=== PATIENT | male | born 1950 | race Caucasian/White ===

== ENCOUNTER → 2016-10-18 | Outpatient (CLI) | payer BC ==
--- NOTE | 2016-10-18 10:38 | REP ---
Bilateral wrist series 10/18/2016 Indication: Chronic bilateral wrist pain Findings: Right wrist: Moderate narrowing is noted at the radiocarpal joint and ulna carpal joint. There is spurring of the anterior aspect of the distal ulna, most pronounced anteriorly. There is moderate narrowing of the articulation between the triquetrum and the trapezium. Small nonspecific subchondral cystic changes are present within the scaphoid and lunate. There is no acute fracture dislocation is mild generalized soft tissue swelling about the wrist Impression: 1. 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 Mild generalized soft tissue swelling. No acute fracture or dislocation Left wrist: There is mild narrowing at the radiocarpal and ulnocarpal joints. There is spurring of the distal ulna at the distal radioulnar joint as well as on the volar aspect of the distal ulna. There is no acute fracture, subluxation, moderate osteoarthritic changes within the or dislocation. The carpal bones are intact. There is generalized soft tissue swelling about the wrist Impression: 1. Mild to moderate osteoarthritic changes within the left wrist most pronounced at the distal radioulnar joint and the distal aspect of the ulna. I Signed by Kelsie Keenan MD 10/18/2016 10:28 A
[2016-10-18 13:38] LABS: MEAN CORPUSCULAR HEMOGLOBIN 32.6 pg (27.0-33.0); MEAN CORPUSCULAR HGB CONC 33.4 g/dl (32.0-36.5); MEAN CORPUSCULAR VOLUME 97.6 fl (80.0-96.0); RED CELL DISTRIBUTION WIDTH 13.4 % (11.5-14.5); WHITE BLOOD COUNT 7.4 K/mm3 (4.0-10.0)
[2016-10-18 13:49] LABS: ALBUMIN 3.9 GM/DL (3.2-5.2); ALBUMIN/GLOBULIN RATIO 1.39 (1.00-1.93); ALKALINE PHOSPHATASE 84 U/L (45-117); ALT/SGPT 25 U/L (12-78); ANION GAP 4 MEQ/L (8-16); AST/SGOT 16 U/L (15-37); BILIRUBIN,TOTAL 0.4 MG/DL (0.2-1.0); BLOOD UREA NITROGEN 27 MG/DL (7-18); CALCIUM LEVEL 9.5 MG/DL (8.8-10.2); CARBON DIOXIDE LEVEL 32 MEQ/L (21-32); CHLORIDE LEVEL 107 MEQ/L (98-107); CREATININE FOR GFR 0.98 MG/DL (0.70-1.30); GLOMERULAR FILTRATION RATE > 60.0 (>49); GLUCOSE, FASTING 105 MG/DL (80-110); POTASSIUM SERUM 5.1 MEQ/L (3.5-5.1); SODIUM LEVEL 143 MEQ/L (136-145); TOTAL PROTEIN 6.7 GM/DL (6.4-8.2)
== END ==
LOC: M ADAMS 09:53
PROVIDERS: ATTEND Physician Assistant
DX: M25.532 Pain in left wrist (principal); M25.531 Pain in right wrist; M13.831 Other specified arthritis, right wrist; M77.8 Other enthesopathies, not elsewhere classified

== ENCOUNTER 2017-05-05 20:41 | Emergency (ER) | payer BC ==
[~2017-05-05] VITALS: Ht 175.3 cm; Wt 111.8 kg
[2017-05-05 20:42] VITALS: BP 158/80
[2017-05-05] MEDS ORDERED: ASPI81TA85 PO (20:52)
[2017-05-05] MEDS ORDERED: LIPI80TA PO (20:52)
[2017-05-05] MEDS ORDERED: LOPR1TAB6 PO (20:52)
[2017-05-05] MEDS ORDERED: ONDANSETRON 4MG/2ML VIAL (J2405) IV ONE (21:00)
[2017-05-05] MEDS: MORPHINE 4 MG/ML 1ML SYRINGE IV PRN ×2 (21:22→21:48)
[2017-05-05 21:29] LABS: BASO # 0.1 K/mm3 (0.0-0.2); BASO % 0.6 % (0.0-1.0); EOS # 0.2 K/mm3 (0.0-0.50); EOS % 2.7 % (0.0-3.0); LARGE UNSTAINED CELL # 0.1 K/mm3 (0.0-0.4); LARGE UNSTAINED CELL % 1.4 % (0.0-4.0); LYMPH # 1.8 K/mm3 (1.5-4.5); LYMPH % 17.6 % (24.0-44.0); MEAN CORPUSCULAR HEMOGLOBIN 33.5 pg (27.0-33.0); MEAN CORPUSCULAR HGB CONC 34.7 g/dl (32.0-36.5); MEAN CORPUSCULAR VOLUME 96.4 fl (80.0-96.0); MONO # 0.6 K/mm3 (0.0-0.8); MONO % 6.7 % (0.0-5.0); NEUTROPHILS # 6.5 K/mm3 (1.8-7.7); PLATELET COUNT, AUTOMATED 195 k/mm3 (150-450); WHITE BLOOD COUNT 9.2 K/mm3 (4.0-10.0)
[2017-05-05 21:53] LABS: ALBUMIN 3.6 GM/DL (3.2-5.2); ALBUMIN/GLOBULIN RATIO 1.16 (1.00-1.93); ALKALINE PHOSPHATASE 73 U/L (45-117); ALT/SGPT 27 U/L (12-78); AMYLASE 27 U/L (25-115); ANION GAP 6 MEQ/L (8-16); AST/SGOT 20 U/L (15-37); BILIRUBIN,DIRECT 0.1 MG/DL (0.0-0.2); BILIRUBIN,TOTAL 0.4 MG/DL (0.2-1.0); BLOOD UREA NITROGEN 24 MG/DL (7-18); CARBON DIOXIDE LEVEL 28 MEQ/L (21-32); CHLORIDE LEVEL 105 MEQ/L (98-107); CREATININE FOR GFR 0.85 MG/DL (0.70-1.30); GLOMERULAR FILTRATION RATE > 60.0 (>49); GLUCOSE, FASTING 118 MG/DL (80-110); POTASSIUM SERUM 4.3 MEQ/L (3.5-5.1); SODIUM LEVEL 139 MEQ/L (136-145); TOTAL PROTEIN 6.7 GM/DL (6.4-8.2)
[2017-05-05] MEDS ORDERED: HYDROmorphone HCL 1 MG/ML SYRINGE (J1170) IV ONE (22:30)
--- NOTE | 2017-05-05 22:30 | REPUSA ---
CT of the abdomen and pelvis with contrast Clinical statement: Pain. Technique: Multiple axial CT images were obtained from the base of the lungs through the floor of the pelvis utilizing 5 mm axial slices after administration of nonionic intravenous contrast. Coronal an d sagittal reconstructions were also obtained. No comparison is available. Findings: Chest: The visualized lung bases are clear. Abdomen: The liver, spleen, pancreas, kidneys, gallbladder, and adrenal glands are unremarkable. Ther e is a 1 cm simple cyst in the left lobe of the liver. There is a 1.4 cm simple cyst in the lateral l eft kidney. The aorta demonstrates moderate diffuse atherosclerosis, without evidence of aneurysm or dissection. There is no evidence of abdominal lymphadenopathy or ascites. Pelvis: The bowel is unremarkable, with no obstructive or inflammatory changes. The appendix is oneal l. The urinary bladder is within normal limits. The other pelvic structures appear grossly intact. Th ere is no evidence of pelvic lymphadenopathy or ascites. Bones: There are no suspicious osseous abnormalities seen. Impression: 1. Simple cysts in the left kidney and left lobe of the liver. 2. No obstructive or inflammatory bowel changes. 3. Moderate diffuse atherosclerosis of the abdominal aorta. No evidence of aneurysm or dissection.
[2017-05-05] MEDS ORDERED: CYCL10TA PO (22:50)
== END 2017-05-05 23:03 | disposition home or self-care (01) ==
LOC: M ED 20:41
DX: M79.1 Myalgia (principal); N28.1 Cyst of kidney, acquired; K76.89 Other specified diseases of liver; R10.32 Left lower quadrant pain; I25.10 Atherosclerotic heart disease of native coronary artery without angina pectoris; I25.2 Old myocardial infarction; I10 Essential (primary) hypertension; E66.9 Obesity, unspecified; F17.200 Nicotine dependence, unspecified, uncomplicated; Z88.5 Allergy status to narcotic agent; Z79.82 Long term (current) use of aspirin; Z79.899 Other long term (current) drug therapy; Z83.3 Family history of diabetes mellitus
CPT/HCPCS: 36415; 74177; 80048; 80076; 81001; 82150; 83690; 85025; 96374; 96375; 99283; J1170; J2405

== ENCOUNTER → 2020-03-11 | Outpatient (REF) | payer BC ==
[~2020-03-11] MED LIST: ASPI81TA85 PO; CYCL-707 PO; LIPI80TA PO; LOPR1TAB6 PO
[2020-03-11 18:49] LABS: ALBUMIN 3.6 GM/DL (3.2-5.2); BILIRUBIN,DIRECT 0.2 MG/DL (0.0-0.2); BILIRUBIN,TOTAL 0.6 MG/DL (0.2-1.0); TOTAL PROTEIN 6.9 GM/DL (6.4-8.2)
== END ==
LOC: M LABDRWAD 17:06
PROVIDERS: ATTEND Nurse Practitioner Family
DX: Z01.89 Encounter for other specified special examinations (principal)

== ENCOUNTER → 2020-03-23 | Outpatient (REF) | payer BC, MEDICARE | LOC: M LAB REF 16:39 | PROVIDERS: ATTEND Nurse Practitioner Family | DX: L08.9 Local infection of the skin and subcutaneous tissue, unspecified (principal) ==

== ENCOUNTER → 2020-08-11 | Outpatient (CLI) | payer MEDICARE ==
[~2020-08-11] MED LIST changes: -ASPI81TA85 PO; +ASPI81TA86 PO
== END ==
LOC: M LABSMTC 12:15
PROVIDERS: ATTEND Orthopaedic Surgery
DX: Z11.59 Encounter for screening for other viral diseases (principal)

== ENCOUNTER → 2020-10-15 | Outpatient (CLI) | payer MEDICARE ==
[~2020-10-15] MED LIST changes: +B-1250TA3 PO; +ECOT81TA5 PO; +EZET10TA21
== END ==
LOC: M LABSMTC 09:25
PROVIDERS: ATTEND Anesthesiology
DX: Z20.822 Contact with and (suspected) exposure to COVID-19 (principal)

== ENCOUNTER 2020-10-20 06:53 | Day surgery (SDC) | payer MEDICARE ==
[~2020-10-20] VITALS: Ht 177.8 cm; Wt 118.3 kg
[~2020-10-20 06:53] MED LIST changes: +BSS IRR 500ML/OMIDRIA 4ML IRR BAG (OR ONLY) As Ordered ONE; +CEFUROXIME 1MG/0.1ML INTRACAMERAL INJ As Ordered ONE; +DUOVISC (0.50ML VISCOAT/0.55ML PROVISC) OPHTH KIT As Ordered ONE; -EZET10TA21; +EZET10TA21 PO; +POVIDONE-IODINE 5% OPHTH PREP SOL 30ML As Ordered ONE
--- OUTSIDE RECORDS SUMMARY | 2020-10-20 06:59 | CCD | Continuity of Care Document ---
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 Cardiology - Cardiovascular Disease AUTM [phone] Problems Active Problems Provider Date Varicose veins of lower extremity with inflammation Faheem Goncalves DO Onset: 06/06/2004 Elevated blood-pressure reading without diagnosis of h ypertension Zachary Goncalves DO Onset: 06/06/2004 Tobacco user Zachary Goncalves DO Onset: 06/06/2004 Chronic ischemic heart disease Tee Mills RPA Onset: 06/16/2012 Note: Dr. Winter Coronary arteriosclerosis Tee Mills RPA Onset: 04/07 Hyperlipidemia Tee Mills RPA Onset: 04/29/2015 Genital warts Tee Mills RPA Onset: 04/29/2015 Nocturia Tee Mills RPA Onset: 10/16/2016 Abnormal involuntary movement Tee Mills RPA Onset: 12/16/2018 Social History Type Date Description Comments Sex Unknown Tobacco Use Start: Unknown Current Cigarette Smoker 1 Pack Daily Smoking for [45] years ETOH Use Drinks Beer,Wine and Liquor 1-2 drinks 1-2 times per week Tobacco Use Start: Unknown Patient is a current smoker, smo kes every day 1 ppd for 45 years Recreational Drug Use Denies Drug Use Exercise Type/Frequency Walks sporadically Allergies, Adverse Reactions, Alerts Active Allergies Reaction Severity Comments Date Codeine GI upset 03/29/2008 Medications Active Medications SIG Qnty Indications Ordering Provide r Date Condylox 0.5% Gel sig as directed for elfego genital region 3.500gm Rudy Hyatt D.O., [facility] 09/2019 Clotrimazole/Betamethasone Dipropionate 1-0.05% Cream top bid left leg lesions x 14 days 45gm Rudy Hyatt D.O., [facility] 12/16/2018 Aspirin Ec Lo-Dose 81mg Tablets DR 1 by mouth every day Unknown Metoprolol Succinate ER 25mg Tablets ER 24HR 1 po qd [facility] Cardiolo gy Lipitor 80mg Tablets 1 by mouth every day [facility] Cardiology 0 One Daily For Men 50+ Advanced Men 50+ Tablets 1 tab po qod Unknown Ezetimibe 10mg Tablets 1 by mouth every day [facility] Cardiology 0 History Medications Baclofen 10mg Tablets take 1 tablet by mouth every at bedtime 14tabs Rudy Hyatt D.O., [facility] 06/06/2020 - 06/21/2020 Prednisone 10mg Tablets 2 po tid x 3 days, then 1 po tid x 3 days, then 1 po bid x 3 days, then 1 po qd x 3 days, then 1/2 po qd 42tabs [facility] 06/21/2020 Medications Administered in Office Medication SIG Qnty Indications Ordering Provider Date Injection (SC)/(Im) Injection Tee Mills, ALDO 11/15/2017 Injection (SC)/(Im) Injection Tee Mills, RPA 08/09/2015 Immunizations CPT Code Status Date Vaccine Lot # [id number] Given 06/06/2020 Influenza Virus Vaccine, Quadrivalent, Slit Virus, Im Use 3Y & Up [id number] Given 11/15/2017 Pneumococcal Immunization [id number] Given 08/09/2015 Tdap Tetanus,Dip htheria Toxoids/Acellular Pertussis 7Yrs Or Older [id number] Vital Signs Date Vital Result Comment 09/05/2020 3:23pm BP Systolic 136 mmHg BP Diastolic 80 mmHg Body Temperature 98.1 F Heart Rate 83 /min Respiratory Rate 16 /min Height 70 inches 5'10" Weight 263.00 lb [place] Body Weight 166 lb BMI (Body Mass Index) 37.7 kg/m2 O2 % BldC Oximetry 96 % 06/06/2020 4:12pm BP Systolic 110 mmHg BP Diastolic 72 mmHg Body Temperature 97.5 F Heart Rate 65 /min Respiratory Rate 16 /min Height 70 inches 5'10" Weight 262.00 lb [place] Body Weight 166 lb BMI (Body Mass Index) 37.6 kg/m2 O2 % BldC Oximetry 96 % Results Test Acquired Date Facility Test Result H/L Range Note U/A DIP FPA 06/07/2020 [facility] Asso ciates Color Urine YELLOW Yellow Appearance CLEAR Clear Specific [place] 1.030 1.00-1.03 PH Urine 6.5 5.0-8.0 Glucose Urine NEG Negative Bilirubin Urine NEG Negative Ketones NEG Negative Blood Urine NEG Negative Protein Urine NEG Negative Urobilinogen .2 EU/dl 0.2-1.0 Nitrite NEG Negative Leukocytes NEG Negative CBC 06/06/2020 [facility] WBC 8.5 10E3/uL 4.1 - 10.9 1 RBC 4.80 10E6/uL 4.20 - 6.30 HGB 16.3 g/dL 12.0 - 18.0 HCT 46.5 % 37.0 - 51.0 MCV 96.9 fL 80.0 - 97.0 MCH 34.0 pg High 26.0 - 32.0 MCHC 35.1 g/dL 31.0 - 36.0 PLT 229 10E3/uL 140 - 440 RDW-CV 12.9 % 11.5 - 14.5 Lym% 19.2 % 10.0 - 58.5 Neut% 68.5 % 37.0 - 92.0 MXD% 12.3 % 0.1 - 24.0 Lym# 1.6 10E3/uL 0.6 - 4.1 Neut# 5.9 % 2.0 - 7.8 MXD# 1.0 10E3/uL 0.0 - 1.8 MPV 11.5 fL 9.0 - 13.0 CMP 06/06/2020 [facility] Glu 98 mg/dL 70 - 110 BUN 22 mg/dL 8 - 23 Creat 0.9 mg/dL 0.7 - 1.2 BUN/Creatinine Ratio 24.0 CALC Na 138 mmol/L 136 - 145 K 4.5 mmol/L 3.5 - 5.1 CL 101.5 mmol/L 98.0 - 107.0 Co2 25.1 mmol/L 22.0 - 29.0 CA 9.7 mg/dL 8.6 - 10.2 TP 6.7 g/dL 6.6 - 8.7 Alb 4.3 g/dL 3.5 - 5.2 A/G Ratio 1.8 CALC Globulin 2.4 CALC Alp 82.7 U/L 40 - 129 Alt (SGPT) 24 U/L 0 - 41 Ast (Sgot) 20 U/L 0 - 40 Tbili 0.31 mg/dL 0.0 - 1.2 Osmolality-Calculated 279.5 CALC Anion Gap 16 mmol/L eGFR 102 # Calc 2 eGFR Non-Afr. Stateless 88 # Calc 3 Lipid Panel 06/06/2020 [facility] Chol 139 mg/dL 0 - 200 Trig 120 mg/dL 35 - 200 HDL 41 mg/dL 35 - 55 LDL_C 74 Calc Low 75 - 129 Cho/HDL Ratio 3.4 Calc Laboratory test finding 06/06/2020 [facility] TSH 1.454 ulU/mL 0.60 - 4.8 Laboratory test finding 06/06/2020 [facility] PSA, Total 0.32 ng/mL 0.0 - 4.0 1 NORMAL RANGES Age WBC RBC HGB HCT MCV PLT Adult M 4.1-10.9 4.20-6.30 12.0-18.0 37.0-51.0 80-97 140-440 Adult F 4.1-10.9 4.04-5.48 12.0-18.0 37.0-51.0 80-97 140-440 0 -1 Yr 5.0-20.0 3.9-5.9 15-18 MV: 44 MV: 91 MV: 277 2-9 Yr. 6.0-17.0 3.8-5.4 11-13 MV: 37 MV: 78 MV: 300 10 Yrs. 5.0-13.0 3.8-5.4 12-15 MV: 39 MV: 80 MV: 250 NOTE: * FOR ADULT BLACK MALES AND FEMALES, NORMAL WBC IS 2.9-7.7 K/ML * FOR ADULT BLACK MALES AND FEMALES, NORMAL RBC,HGB, AND HCT IS 5% LESS SOURCE FOR DATA: [employer] 1800 OPERATION MANUAL( AUTOMATED BLOOD COUNTS AND DIFF.) APPENDIX B-3 CHRONIC KIDNEY DISEASE STAGING PER NKF: MALE GFR INTERPRETATION: 20-49 YRS: >60 mL/min Normal 50-59 YRS: >56 mL/min Normal 60-69 YRS: >49 mL/min Normal 70-79 YRS: >42 mL/min Normal 80 and above >35 mL/min Normal FEMALE GRF INTERPRETATION: 20-39 YRS: >60 mL/min Normal 40-49 YRS: >58 mL/min Normal 50-59 YRS: >51 mL/min Normal 60-69 YRS: >45 mL/min Normal 70-79 YRS: >39 mL/min Normal 80 and above >32 mL/min NormalCLASSIFICATION CHOLESTEROL FOR ADULTS CHILDREN/ADOLESCENTS* DESIRABLE: <200 MG/DL <170 MG/DL BORDER-LINE HIGH RISK: 200-239 MG/DL 170-199 MG/DL HIGH RISK: >240 MG/DL >200 MG/DL CLASS. FOR PRIMARY LDL CHOL PREVENTION: LDL CHOL-CHILD/ADOLESCENTS* DESIRABLE: <130 MG/DL <110 MG/DL BORDERLINE-HIGH RISK: 130- 159 MG/DL 110-129 MG/DL HIGH RISK: >160 MG/DL >130 MG/DL *CHILDREN AND ADOLESCENTS REPRESENTS INDIVIDUALA AGED 2-19 YEARS EXCLUSIVE. 2 CKD-EPI 3 CKD-EPI Procedures Date Code Description Status 06/06/2020 00894 Electrocardiogram Complete Compl eted Medical Devices Description No Information Available Encounters Type Date Location Provider Dx Diagnosis Office Visit 06/06/2020 4:00p [place] [facility] Tee Mills RP A Z00.01 Encounter for general adult medical exam w abnormal findings M54.5 Low back pain M25.552 Pain in left hip M54.16 Radiculopathy, lumbar region E78.5 Hyperlipidemia, unspecified I25.10 Athscl heart disease of [place] coronary artery w/o ang pctrs R35.1 Nocturia F17.210 Nicotine dependence, cigaret [place], uncomplicated A63.0 Anogenital (venereal) warts Z23 Encounter for immunization Z12.11 Encounter for screening for malignant neoplasm of colon Assessments Date Code Description Provider 09/05/2020 K42.9 Umbilical hernia without obstruc tion or gangrene Tee Mills, RPA 06/07/2020 M54.5 Low back pain Tee Mills, RPA 06/06/2020 Z23 Encounter for immunization Samuel Hyatt D.O., [facility] 06/06/2020 Z00.01 Encounter for genera l adult medical examination with abnormal findings Tee Mills, RPA 06/06/2020 M54.5 Low back pain Tee Mills, RPA 06/06/2020 M25.552 Pain in left hip Tee Mills, RPA 06/06/2020 M54.16 Radiculopathy, lumbar region Tee Ngo, RPA 06/06/2020 E78.5 Hyperlipidemia, unspecified Tee Ortiz, RPA 06/06/2020 I25.10 Atherosclerotic heart disease of [place] coronary artery with Tee Mills, RPA 06/06/2020 R35.1 Nocturia Tee Mills, RPA 06/06/2020 F17.210 Nicotine dependence, cigarettes, uncomplicated Tee Mills, RPA 06/06/2020 A63.0 Anogenital (venereal) warts Tee Ortiz, RPA 06/06/2020 Z23 Encounter for immunization Tee Fox, RPA 06/06/2020 Z12.11 Encounter for screening for mary gnant neoplasm of colon Tee Mills, RPA Plan of Treatment No Information Available Functional Status Description No Information Available Mental Status Description No Information Available Referrals Refer to Reason for Referral Status Appt Date Bam Mendez M.D. tender 15mm umbilical hernia--mild pain at t imes. Created [address] [place] [address], [address] [place] [address] [phone] [facility] Extensive venereal [place] [address] [facility], [place] [address] [phone]
--- OUTSIDE RECORDS SUMMARY | 2020-10-20 06:59 | CCD | Continuity of Care Document ---
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 [employer] BEER Tobacco Use Start: 10/07/66 Patient is a current smoker, smo kes every day 1 PPD Recreational Drug Use Denies Drug Use Allergies, Adverse Reactions, Alerts Active Allergies Reaction Severity Comments Date Codeine Nausea 09/14/2020 Medications Active Medications SIG Qnty Indications Ordering Provide r Date Atorvastatin Calcium 80mg Tablets 1 Tab PO qd Unknown Ezetimibe 10mg Tablets 1 Tab PO qd Unknown Metoprolol Tartrate 25mg Tablets 1 Tab PO qd Unknown Aspirin [address] take 1 tab by mouth daily Unknown Vitamin B12 1000mcg Tablets ER 1 by mouth every day Unknown Immunizations Description No Information Available Vital Signs Date Vital Result Comment 09/14/2020 11:14am BP Systolic 137 mmHg BP Diastolic 90 mmHg Height 70 inches 5'10" Weight 263.25 lb BMI (Body Mass Index) 37.8 kg/m2 [place] Body Weight 166 lb Weight 119.410 kg BSA (Body Surface Area) 2.35 m2 Results Description No Information Available Procedures Description No Information Available Medical Devices Description No Information Available Encounters Description No Information Available Assessments Description No Information Available Plan of Treatment No Information Available Functional Status Description No Information Available Mental Status Description No Information Available Referrals Refer to Reason for Referral Status Appt Date Bam Mendez JR, MD UMBILICAL HERNIA Scheduled 020 [address] [facility] [address] [place] [phone] [phone]
[2020-10-20] MEDS ORDERED: PROPARACAINE 0.5% OPHTH SOL 15ML OS ONE (07:00)
[2020-10-20] MEDS ORDERED: OFLOXACIN 0.3 % (OCUFLOX) OPTH SOL 5ML OS ONE (07:00)
[2020-10-20] MEDS ORDERED: PHENYLEPHRINE 2.5% OPHTH SOL 2ML OS ONE (07:00)
[2020-10-20] MEDS ORDERED: TROPICAMIDE 1% OPHTH SOLN 2ML OS ONE (07:00)
--- OUTSIDE RECORDS SUMMARY | 2020-10-20 07:00 | CCD | Continuity of Care Document ---
Author Author Armand DAILEY MD Organization Unknown Address [address] [place] [address] Phone [phone] Care Team Providers Care Merchandiser Seasonal Name Role Phone Tee Mills [facility]M [phone] Problems Active Problems Provider Date Essential hypertension Gilberto Dailey MD Onset: 03/01/2017 Social History Type Date Description Comments Sex Unknown ETOH Use Occasionally consumes alcohol Tobacco Use Start: Unknown Patient is a current smoker, smo kes every day smoked for 50 years, 1 pack daily Allergies, Adverse Reactions, Alerts Active Allergies Reaction Severity Comments Date Codeine 03/01/2017 Medications Active Medications SIG Qnty Indications Ordering Provide r Date Gabapentin 100mg Capsules 1-2 by mouth three times a day 90caps M51.36 Gilberto Dailey MD 07/04/2020 Lipitor 80mg Tablets 1 by mouth every day Unknown Metoprolol Succinate ER 25mg Tablets ER 24HR 1 by mouth every day Unknown 000 000 Aspirin Adult Low Strength 81mg Ch ewtabs 1 by mouth every day Unknown Baclofen 10mg Tablets Tee Mills RPA Prednisone 10mg Tablets Tee Mills RPA Ezetimibe 10mg Tablets Penny Winter MD Metoprolol Tartrate 25mg Tablets Penny Winter MD Tacrolimus 0.1% Ointment Apply To Left Lower Leg Two Times A Day as Needed For Itching Unknown Doxycycline Hyclate 100mg Tablets Unknown Clobetasol Propionate 0.05% Ointment Unknown Ciclopirox 0.77% Gel Apply To Left Lower Leg Two Times A Day For 2 Weeks Unknown Fluzone High-Dose 0.5ml [place] Unknown Immunizations Description No Information Available Vital Signs Date Vital Result Comment 06/21/2020 8:24am Body Temperature 97.0 F Height 70 inches 5'10" Weight 255.00 lb BMI (Body Mass Index) 36.6 kg/m2 02/14/2018 8:55am Body Temperature 97.4 F Height 69.75 inches 5'9.75" Weight 244.00 lb BMI (Body Mass Index) 35.3 kg/m2 Results Test Acquired Date Facility Test Result H/L Range Note Laboratory test finding 08/11/2020 [facility] [address] [place] [address] (315)- - Coronavirus 2019 Nasopharygeal This nucleic aci <SEE NOTE> 1 1 This nucleic acid amplificat ion test was developed and its performance characteristics determined by [employer]. Nucleic acid amplification tests include PCR and TMA. This test has not been FDA cleared or approved. This test has been authorized by FDA under an Emergency Use Authorization (EUA). This test is only authorized for the duration of time the declaration that circumstances exist justifying the authorization of the emergency use of in vitro diagnostic tests for detection of SARS-CoV-2 virus and/or diagnosis of COVID-19 infection under section 564(b)(1) of the Act, 21 U.S.C. 360bbb-3 (b) (1), unless the authorization is terminated or revoked sooner. When diagnostic testing is negative, the possibility of a false negative result should be considered in the context of a patient's recent exposures and the presence of clinical signs and symptoms consistent with COVID-19. An individual without symptoms of COVID-19 and who is not shedding SARS-CoV-2 virus would expect to have a negative (not detected) result in this assay. Performed at: [facility] [address] [id number] [facility]: Danica Caruso MD, Phone: [phone] Not Detected Procedures Date Code Description Status 06/21/2020 27621 X-Ray Spine Lumbosacral Bending Only 2 Or 3 Views Completed Medical Devices Description No Information Available Encounters Type Date Location Provider Dx Diagnosis Office Visit 07/04/2020 12:30p [place] Gilberto Dailey MD M48.061 Spinal stenosis, lumbar region without neurogenic ellen M51.36 Other intervertebral disc de generation, lumbar region M47.896 Other spondylosis, lumbar re gion M54.16 Radiculopathy, lumbar region F17.210 Nicotine dependence, cigaret [place], uncomplicated M41.9 Scoliosis, unspecified Office Visit 06/21/2020 8:00a [place] Gilberto Dailey MD M51.36 Other intervertebral disc degeneration, lumbar region M47.896 Other spondylosis, lumbar re gion M54.16 Radiculopathy, lumbar region F17.210 Nicotine dependence, cigaret [place], uncomplicated Assessments Date Code Description Provider 08/29/2020 M48.061 Spinal stenosis, lum bar region without neurogenic claudication Gilberto Dailey MD 08/29/2020 M51.36 Other intervertebral disc degene ration, lumbar region Gilberto Dailey MD 08/29/2020 M47.896 Other spondylosis, lumbar region Gilberto Dailey MD 08/29/2020 M54.16 Radiculopathy, lumbar region Bru kitty Dailey MD 08/29/2020 F17.210 Nicotine dependence, cigarettes, uncomplicated Gilberto Dailey MD 08/29/2020 M41.9 Scoliosis, unspecified Gilberto Dailey MD 07/04/2020 M48.061 Spinal stenosis, lum bar region without neurogenic claudication Gilberto Dailey MD 07/04/2020 M51.36 Other intervertebral disc degene ration, lumbar region Gilberto Dailey MD 07/04/2020 M47.896 Other spondylosis, lumbar region Gilberto Dailey MD 07/04/2020 M54.16 Radiculopathy, lumbar region Bru kitty Dailey MD 07/04/2020 F17.210 Nicotine dependence, cigarettes, uncomplicated Gilberto Dailey MD 07/04/2020 M41.9 Scoliosis, unspecified Gilberto Dailey MD 06/21/2020 M51.36 Other intervertebral disc degene ration, lumbar region Gilberto Dailey MD 06/21/2020 M47.896 Other spondylosis, lumbar region Gilberto Dailey MD 06/21/2020 M54.16 Radiculopathy, lumbar region Bru ce Deyvi Dailey MD 06/21/2020 F17.210 Nicotine dependence, cigarettes, uncomplicated Gilberto Dailey MD Plan of Treatment 08/29/2020 - Gilberto Dailey MD* M48.061 Spinal stenosis, lumbar region without neurogenic claudication* Follow up:* will follow up when wanting intrepid nunu injections again thank you per [facility] * M51.36 Other intervertebral disc degeneration, lumbar region * M47.896 Other spondylosis, lumbar region * M54.16 Radiculopathy, lumbar region * F17.210 Nicotine dependence, cigarettes, uncomplicated * M41.9 Scoliosis, unspecified Functional Status Description No Information Available Mental Status Description No Information Available Referrals Refer to Dr Reason for Referral Status Appt Date Gilberto Dailey MD LIANNA INJ([id number]) PER DINO [facility] AT [facility] APPROVAL FOR 1 INJ TO SURGERY NT Created [address] [facility], [address] [place] [address] [phone]
--- OUTSIDE RECORDS SUMMARY | 2020-10-20 07:00 | CCD ---
Author Author [facility] Organization [facility] Address Unknown Phone Unavailable Care Team Providers Care Security System Installer Name Role Phone Isabelle Mills PA Unavailable Unavailable Isabelle Mills PA Unavailable Unavailable Isabelle Mills PA Unavailable Unavailable Isabelle Mills PA Unavailable Unavailable Isabelle Mills PA Unavailable Unavailable Isabelle Mills PA Unavailable Unavailable Isabelle Mills PA Unavailable Unavailable Isabelle Mills PA Unavailable Unavailable Isabelle Mills PA Unavailable Unavailable Isabelle Mills PA Unavailable Unavailable Isabelle Mills PA Unavailable Unavailable Isabelle Mills PA Unavailable Unavailable Isabelle Mills PA Unavailable Unavailable Isabelle Mills PA Unavailable Unavailable Isabelle Mills PA Unavailable Unavailable Isabelle Mills PA Unavailable Unavailable Isabelle Mills PA Unavailable Unavailable Isabelle Mills PA Unavailable Unavailable Isabelle Mills PA Unavailable Unavailable Isabelle Mills PA Unavailable Unavailable Isabelle Mills PA Unavailable Unavailable Isabelle Mills PA Unavailable Unavailable Isabelle Mills PA Unavailable Unavailable Isabelle Mills PA Unavailable Unavailable Isabelle Mills PA Unavailable Unavailable Isabelle Mills PA Unavailable Unavailable Isabelle Mills Tee PA Unavailable Unavailable Isabelle Mills PA Unavailable Unavailable Isabelle Mills PA Unavailable Unavailable Isabelle Mills Tee PA Unavailable Unavailable Isabelle Mills PA Unavailable Unavailable Isabelle Mills PA Unavailable Unavailable Isabelle Mills PA Unavailable Unavailable Isabelle Mills PA Unavailable Unavailable Isabelle Mills PA Unavailable Unavailable Isabelle Mills PA Unavailable Unavailable Isabelle Mills PA Unavailable Unavailable Lina, D Tee PA Unavailable Unavailable Lina, D Tee PA Unavailable Unavailable Lina, D Tee PA Unavailable Unavailable Lina, D Tee PA Unavailable Unavailable Lina, D Tee PA Unavailable Unavailable Lina, D Tee PA Unavailable Unavailable Lina, D Tee PA Unavailable Unavailable Lina, D Tee PA Unavailable Unavailable Lina, D Tee PA Unavailable Unavailable Lina, D Tee PA Unavailable Unavailable Lina, D Tee PA Unavailable Unavailable Lina, D Tee PA Unavailable Unavailable Lina, D Tee PA Unavailable Unavailable Lina, D Tee PA Unavailable Unavailable Lina, D Tee PA Unavailable Unavailable Lina, D Tee PA Unavailable Unavailable Lina, D Tee PA Unavailable Unavailable Lina, D Tee PA Unavailable Unavailable Lina, D Tee PA Unavailable Unavailable Lina, D Tee PA Unavailable Unavailable Lina, D Tee PA Unavailable Unavailable Lina, D Tee PA Unavailable Unavailable Lina, D Tee PA Unavailable Unavailable Lina, D Tee PA Unavailable Unavailable Lina, D Tee PA Unavailable Unavailable Lina, D Tee PA Unavailable Unavailable Marbella, N Lei ESTIMATION MANAGER Unavailable Unavailable Marbella, N Lei ESTIMATION MANAGER Unavailable Unavailable Marbella, N Lei ESTIMATION MANAGER Unavailable Unavailable Marbella, N Lei ESTIMATION MANAGER Unavailable Unavailable [place], N Lei ESTIMATION MANAGER Unavailable Unavailable Marbella, N Lei ESTIMATION MANAGER Unavailable Unavailable Marbella, N Lei ESTIMATION MANAGER Unavailable Unavailable [place], N Lei ESTIMATION MANAGER Unavailable Unavailable Marbella, N Lei ESTIMATION MANAGER Unavailable Unavailable Marbella, N Lei ESTIMATION MANAGER Unavailable Unavailable [place], N Lei ESTIMATION MANAGER Unavailable Unavailable [place], N Lei ESTIMATION MANAGER Unavailable Unavailable [place], N Lei ESTIMATION MANAGER Unavailable Unavailable Marbella, N Lei ESTIMATION MANAGER Unavailable Unavailable Marbella, N Lei ESTIMATION MANAGER Unavailable Unavailable [place], N Lei ESTIMATION MANAGER Unavailable Unavailable Marbella, N Lei ESTIMATION MANAGER Unavailable Unavailable [place], N Lei ESTIMATION MANAGER Unavailable Unavailable Marbella, N Lei ESTIMATION MANAGER Unavailable Unavailable Marbella, N Lei ESTIMATION MANAGER Unavailable Unavailable [place], N Lei ESTIMATION MANAGER Unavailable Unavailable [place], N Lei ESTIMATION MANAGER Unavailable Unavailable [place], N Lei ESTIMATION MANAGER Unavailable Unavailable Marbella, N Lei ESTIMATION MANAGER Unavailable Unavailable [place], N Lei ESTIMATION MANAGER Unavailable Unavailable [place], N Lei ESTIMATION MANAGER Unavailable Unavailable Marbella, N Lei ESTIMATION MANAGER Unavailable Unavailable [place], N Lei ESTIMATION MANAGER Unavailable Unavailable Marbella, N Lei ESTIMATION MANAGER Unavailable Unavailable Marbella, N Lei ESTIMATION MANAGER Unavailable Unavailable Williamson, L Gilberto MD Unavailable Unavailable Williamson, L Gilberto MD Unavailable Unavailable Williamson, L Gilberto MD Unavailable Unavailable Williamson, L Gilberto MD Unavailable Unavailable Williamson, L Gilberto MD Unavailable Unavailable Williamson, L Gilberto MD Unavailable Unavailable Williamson, L Gilberto MD Unavailable Unavailable Williamson, L Gilberto MD Unavailable Unavailable Williamson, L Gilberto MD Unavailable Unavailable Williamson, L Gilberto MD Unavailable Unavailable Williamson, L Gilberto MD Unavailable Unavailable Williamson, L Gilberto MD Unavailable Unavailable Williamson, L Gilberto MD Unavailable Unavailable Williamson, L Gilberto MD Unavailable Unavailable Williamson, L Gilberto MD Unavailable Unavailable Williamson, L Gilberto MD Unavailable Unavailable Williamson, L Gilberto MD Unavailable Unavailable Williamson, L Gilberto MD Unavailable Unavailable Williamson, L Gilberto MD Unavailable Unavailable Williamson, L Gilberto MD Unavailable Unavailable Williamson, L Gilberto MD Unavailable Unavailable Williamson, L Gilberto MD Unavailable Unavailable Williamson, L Gilberto MD Unavailable Unavailable Williamson, L Gilberto MD Unavailable Unavailable Williamson, L Gilberto MD Unavailable Unavailable Williamson, L Gilberto MD Unavailable Unavailable Williamson, L Gilberto MD Unavailable Unavailable Williamson, L Gilberto MD Unavailable Unavailable Williamson, L Gilberto MD Unavailable Unavailable Williamson, L Gilberto MD Unavailable Unavailable Williamson, L Gilberto MD Unavailable Unavailable Williamson, L Gilberto MD Unavailable Unavailable Williamson, L Gilberto MD Unavailable Unavailable Williamson, L Gilberto MD Unavailable Unavailable Williamson, L Gilberto MD Unavailable Unavailable Williamson, L Gilberto MD Unavailable Unavailable Williamson, L Gilberto MD Unavailable Unavailable Williamson, L Gilberto MD Unavailable Unavailable Williamson, L Gilberto MD Unavailable Unavailable Williamson, L Gilberto MD Unavailable Unavailable Williamson, L Gilberto MD Unavailable Unavailable Williamson, L Gilberto MD Unavailable Unavailable Williamson, L Gilberto MD Unavailable Unavailable Williamson, L Gilberto MD Unavailable Unavailable Williamson, L Gilberto MD Unavailable Unavailable Williamson, L Gilberto MD Unavailable Unavailable Williamson, L Gilberto MD Unavailable Unavailable Re-disclosure Warning The records that you are about to access may contain information from federally-assisted alcohol or drug abuse programs. If such information is present, then the following federally mandated warning applies: This information has been disclosed to you from records protected by federal confidentiality rules (42 CFR part 2). The federal rules prohibit you from making any further disclosure of this information unless further disclosure is expressly permitted by the written consent of the person to whom it pertains or as otherwise permitted by 42 CFR part 2. A general authorization for the release of medical or other information is NOT sufficient for this purpose. The Federal rules restrict any use of the information to criminally investigate or prosecute any alcohol or drug abuse patient.The records that you are about to access may contain highly sensitive health information, the redisclosure of which is protected by Article 27-F of the [facility] Public Health law. If you continue you may have access to information: Regarding HIV / AIDS; Provided by facilities licensed or operated by the [facility] Office of Mental Health; or Provided by the [facility] Office for People With Developmental Disabilities. If such information is present, then the following [facility] mandated warning applies: This information has been disclosed to you from confidential records which are protected by state law. State law prohibits you from making any further disclosure of this information without the specific written consent of the person to whom it pertains, or as otherwise permitted by law. Any unauthorized further disclosure in violation of state law may result in a fine or usp sentence or both. A general authorization for the release of medical or other information is NOT sufficient authorization for further disc losure. Family History Family Member Name Family Member Gender Family Member Status Date o f Status Description Data Source(s) Unknown Male Problem [facility] ([facility]) Unknown Unknown Problem [facility] ([facility] Unknown Unknown Problem [facility] ([facility]) father Encounters Encounter Providers Location Date Indications Data Source(s ) Outpatient Attender: Lei BUENROSTRO.[email or web address].MARI 021 12:00:00 AM EST - 10/17/2020 01:33:[address] [facility] Outpatient Attender: Lei [email or web address].[email or web address] 020 12:00:00 AM EST - 09/13/2020 03:32:[address] [facility] Outpatient Attender: Gilberto Williamson MD Physical Therapy 07/04/2020 1 2:30:00 PM EDT [facility] ([facility]) Outpatient Attender: Gilberto Williamson MD Physical Therapy 06/21/2020 0 8:00:00 AM EDT [facility] ([facility]) Outpatient Attender: [facility] 04:00:00 PM EDT [facility] ([facility] Immunizations Vaccine Date Status Description Data Source(s) New in 2013. IIV4 06/06/2020 04:42:00 PM EDT completed [facility] ([facility] INFLUENZA VIRUS VACCINE TRIVAL SPLIT [id number](67 YR U P)/PF 09/16/2019 12:00:00 AM EST completed [facility] Medications Medication Brand Name Start Date Product Form Dose Route Admi nistrative Instructions Pharmacy Instructions Status Indications Reaction Description Data Source(s) 1 % 10/14/2020 12:00:00 AM EST drops,suspension 2 ON DAY OF SURGERY REMOVE PATCH AND INSTILL ONE DROP TWO TIMES A DAY INTO LEFT EYE ON DAY OF SURGERY REMOVE PATCH AND INSTILL ONE DROP TWO TIMES A DAY INTO LEFT EYE SOLD: 10/15/2020 [facility] 0.075 % 10/14/2020 12:00:00 AM EST drops 5 INSTILL ONE DROP TWO TIMES A DAY INTO LEFT EYE, START THREE DAYS PRIOR TO SURGERY INSTILL ONE DROP TWO TIMES A DAY INTO LEFT EYE, START THREE DAYS PRIOR TO SURGERY SOLD: 10/15/2020 [facility] moxifloxacin 5 MG/ML Ophthalmic Solution 0.5 % MOXIFLOXACIN HCL 10/14/2020 12:00:00 AM EST drops 3 INSTILL ONE DROP FOUR TIMES A DAY INTO LEFT EYE STARTING THREE DAYS PRIOR TO SURGERY INSTILL ONE DROP FOUR TIMES A DAY INTO L EFT EYE STARTING THREE DAYS PRIOR TO SURGERY SOLD: 10/15/2020 [facility] ezetimibe 10 MG Oral Tablet ezetimibe (ZETIA) 10 MG ta blet ezetimibe (ZETIA) 10 MG tablet 08/31/2020 12:00:00 AM EST 10 mg Oral active Take 1 tablet (10 mg total) by mouth daily [facility] atorvastatin 80 MG Oral Tablet atorvastatin (LIPITOR) 80 MG tablet atorvastatin (LIPITOR) 80 MG tablet 08/31/2020 12:00:00 AM EST 80 mg Oral active Take 1 tablet (80 mg total) by mouth daily [facility] 100 mg 07/05/2020 12:00:00 AM EDT capsule 90 TAKE 1 TO 2 CAPSULES BY MOUTH THREE TIMES A DAY TAKE 1 TO 2 CAPSULES BY MOUTH THREE TIMES A DAY SOLD: 07/06/2020 [facility] gabapentin 100 MG Oral Capsule Gabapentin 07/04/2020 12:00:00 AM EDT ORAL active [facility] ([facility]) 10 mg 06/07/2020 12:00:00 AM EDT tablet 42 TAKE 2 TABLETS BY MOUTH THREE TIMES A DAY FOR 3 DAYS THEN 1 TABLET THREE TIMES A DAY FOR 3 DAYS THEN 1 TABLET TWO TIMES A DAY FOR 3 DAYS THEN 1TAB ONCE DAILY FOR 3 DAYS THEN 1/2 TABLET ONCE DAILY TAKE 2 TABLETS BY MOUTH THREE TIMES A DA Y FOR 3 DAYS THEN 1 TABLET THREE TIMES A DAY FOR 3 DAYS THEN 1 TABLET TWO TIMES A DAY FOR 3 DAYS THEN 1TAB ONCE DAILY FOR 3 DAYS THEN 1/2 TABLET ONCE DAILY SOLD: 06/07/2020 [facility] 10 mg 06/07/2020 12:00:00 AM EDT tablet 14 TAKE ONE TABLET BY MOUTH AT BEDTIME TAKE ONE TABLET BY MOUTH AT BEDTIME SOLD: 06/07/2020 [facility] Baclofen 10 MG Oral Tablet Baclofen 06/06/2020 12:00:00 AM EDT ORAL completed [facility] ([facility] Prednisone 10 MG Oral Tablet Prednisone 06/06/2020 12:00:00 AM EDT ORAL completed [facility] ([facility] Metoprolol Tartrate 25 MG Oral Tablet me toprolol tartrate (LOPRESSOR) 25 MG tablet metoprolol tartrate (LOPRESSOR) 25 MG tablet 04/20/2020 12:0 0:00 AM EDT aborted TAKE 1 TABLET RICH MARY [facility] 0.1 % 04/14/2020 12:00:00 AM EDT ointment 60 APPLY TO LEFT LOWER LEG TWO TIMES A DAY NEEDED FOR ITCHING APPLY TO LEFT LOWER LEG TWO TIMES A DAY NEEDED FOR ITCHING SOLD: 04/15/2020 [facility] 100 mg 03/23/2020 12:00:00 AM EDT tablet 28 TAKE ONE TABLET BY MOUTH TWICE A DAY FOR 14 DAYS TAKE ONE TABLET BY MOUTH TWICE A DAY FOR 14 DAYS SOLD: 03/23/2020 [facility] Clobetasol Propionate 0.0005 MG/MG Topical Ointment 0. 05 % CLOBETASOL PROPIONATE 03/21/2020 12:00:00 AM EDT ointment 30 A PPLY TO LEFT LEG TWO TIMES A DAY FOR 2 WEEKS APPLY TO LEFT LEG TWO TIMES A DAY FOR 2 WEEKS SOLD: 03/21/2020 [facility] 0.77 % 03/11/2020 12:00:00 AM EDT gel 45 APPLY TO LEFT LOWER LEG TWO TIMES A DAY FOR 2 WEEKS APPLY TO LEFT LOWER LEG TWO TIMES A DAY FOR 2 WEEKS SO LD: 03/12/2020 [facility] Insurance Providers Payer name Policy type / Coverage type Policy ID Covered green party ID Covered green party's relationship to garcia Policy Garcia Plan Information MEDICARE BLUE PPO 306 [id number] SP [id number] [employer]BS MEDICARE Medicare [id number] [employer]BS MEDICARE [id number] Cathy [id number] MEDICARE BLUE PPO 306 [id number] SP [id number] [place] [employer] B [id number] S VYM [id number] [employer] BCBS B [id number] S VYE [id number] [place] P[place] 302/307 [id number] SP [id number] [place] P[place] 302/307 [id number] SP [id number] [place] Other 0 Self 0 BS [place] Commercial [id number] Self [id number] Blue Cross Blue Shield P [id number] SELF [id number] BCBS/[place] Commercial [id number] Self VY [id number] [place] PPO 302/307 [id number] SP [id number] BS [place] Commercial [id number] Self [id number] [place] BCBS B [id number] S [id number] BCBS/[place] Self SELF PAY P S Problems, Conditions, and Diagnoses Code Display Name Description Problem Type Effective Dates Data Source(s) R03.0 Elevated BP Elevated BP [id number] 09/13/2020 12:00:00 AM [facility] R03.0 Elevated blood-pressure reading, without diagnosis of hypertension Elevated blood-pressure reading, without Diagnosis 10/17/2020 01:12:44 PM [facility] F17.200 Nicotine dependence, unspecified, uncomp licated Nicotine dependence, unspecified, uncomp Diagnosis 10/17/2020 01:12:44 PM EST [facility] I25.10 Atherosclerotic heart diseas e of [place] coronary artery without angina pectoris Atherosclerotic heart disease of [place] Diagnosis 10/17/2020 01:12:44 PM EST [facility] E78.00 Pure hypercholesterolemia, unspecified P ure hypercholesterolemia, unspecified Diagnosis 10/17/2020 01:12:44 PM EST [facility] R06.83 Snoring Snoring Diagnosis 10/17/2020 01:12:44 PM ES T [facility] Surgeries/Procedures Procedure Description Date Indications Data Source(s) ECG ROUTINE ECG W/LEAST 12 LDS W/I&R POCT AMB EKG Routine 09/13/2020 3:15 PM EST Atherosclerosis of [place] coronary artery of [place] heart without angina pectoris 09/13/2020 08:15:00 PM EST Atheroscleros is of [place] coronary artery of [place] heart without angina pectoris [facility] Atherosclerosis of [place] coronary arter y of [place] heart without angina pectoris X-Ray Spine Lumbosacral Bending Only 2 Or 3 Views 06/21/2020 12:00:00 AM EDT [facility] ([facility] Electrocardiogram Complete 06/06/2020 12:00:00 AM EDT [facility] ([facility] Results ID Date Data Source [id number] 10/15/2020 08:30:00 AM EST [facility] Name Value Range Interpretation Code Description Data Alena rce(s) Supporting Document(s) SARS coronavirus 2 RNA Not Detected [facility] This lab was ordered by [facility] and reported by [facility]. ID Date Data Source [id number] 08/11/2020 12:00:00 PM EST [facility] ([facility]) Name Value Range Interpretation Code Description Data Alena rce(s) Supporting Document(s) Coronavirus 2019 Nasopharygeal Laboratory test result [facility] ([facility] ) This nucleic acid amplification test was developed and its performance characteristics determined by [facility]. Nucleic acid amplification tests include PCR and [...] detected) result in this assay. Performed at: [facility] [id number] Half [place] Ironer: Danica Caruso MD, Phone: [phone] Not Detected ID Date Data Source [id number] 08/11/2020 12:00:00 PM EST [facility] Name Value Range Interpretation Code Description Data Alena rce(s) Supporting Document(s) SARS coronavirus 2 RNA [facility] This lab was ordered by [facility] and reported by [facility]. ID Date Data Source [id number] 06/27/2020 12:00:00 AM EDT [facility] Gilberto Williamson MD Patient Name: SARIKA [facility]ARTINEZ1 [facility] 1950[facility] [place] [address] Date of Exam: 06/27/2020#: Fax: [phone] EXAM: MRI LUMBAR SPINE WITHOUT CONTRASTPROCEDURE INFORMATION:Exam: MR Lumbar Spine Without Contrast.Exam date and time: 06/27/2020 9:55 AM Age: 69 years oldClinical indication: Low back painTECHNIQUE: Imaging protocol: Multiplanar magnetic resonance images of thelumbar spine without intravenous contrast.COMPARISON: LUMBOSACRAL SPINE (4 VIEWS) 06/06/2020 5:30 PMFINDINGS:Vertebrae: Unremarkable.Spinal cord: Normal signal. No cord compress ion.L1-L2: There is degenerative disc disease including disc space narrowingand dessication. There is moderate disc bulging. There is facet arthropathyand ligamentum flavum hypertrophy.L2-L3: There is mild disc bulging. Disc bulging extends into both neuralforamen causing mild bilateral neural foraminal narrowing. There is facetarthropathy and ligamentum flavum hypertrophy. L3-L4: There is mild discbulging. There is a superimposed left foraminal disc herniation that abutsthe exiting left L 3 nerve root. There is moderate left- sidedneuroforaminal narrowing. There is facet arthropathy and ligamentum f lavumhypertrophy. There is mild spinal canal stenosis.L4-L5: There is disc desiccation. There is moderate disc bulging. Discbulging extends into both neural foramen causing mild bilateral neuralforaminal narrowing. There is facet arthropathy and ligamentum flavumhypertrophy.L5-S1: There is degenerative disc disease including disc space narrowingand dessication. There is a moderate disc bulge with a small superimposedcentral disc herniation. There is a superimposed right foraminal discherniation. There is moderate/severe right-sided neuroforaminal narrowing.There is facet arthropathy and ligamentum flavum hypertrophy.Soft tissues: Unremarkable.IMPRESSION:Multilevel degenerative changes causing variable degrees of spinal [place] neuroforaminal narrowing as described above. Multilevel discherniations. Please see details above.Thank you for allowing us to participate in the care of your patient.Dictated and Authenticated by: Srini Cardoza MD 06/27/2020 11:17 AM [facility] [facility] [place])Abelardo/Mike fischer for referring TON MARTINEZ to our office. Electronically Signed - [facility] 06/27/20 16:05 Name Value Range Interpretation Code Description Data Alena rce(s) Supporting Document(s) ID Date Data Source [id number] 06/07/2020 02:27:00 PM EDT [facility] ([facility] Name Value Range Interpretation Code Description Data Alena rce(s) Supporting Document(s) Color Urine Laboratory test result M [facility] ([facility] Specific [place] 1.030 1.00-1.03 [facility] ([facility] Appearance of Urine Laboratory test result [facility] ([facility] PH Urine 6.5 5.0-8.0 [facility] Glucose Urine Laboratory test result [facility] ([facility] Bilirubin.total [Presence] in Urine by Test strip Laboratory test res ult [facility] ([facility] Protein Urine Laboratory test result [facility] ([facility] Blood Urine Laboratory test result M [facility] ([facility] Ketones Laboratory test result [facility] ([facility] Nitrite Laboratory test result [facility] ([facility] Urobilinogen 0.2 EU/dl 0.2-1.0 [facility] ([facility] Leukocytes Laboratory test result ME DENT ([facility] ID Date Data Source [id number] 06/06/2020 12:00:00 AM EDT [facility] Patient Name: TON MARTINEZ [id number] Date of : 1950[place] [address] Date of Exam: 06/06/2020PH#: Fax: [phone] EXAM: HIP LEFT UNILATERAL (COMPLETE) X-RAYCLINICAL INFORMATION: Pain.Two views.Mineralization and joint spaces are normal. There are no calcifications.There is no fracture or dislocation. There is no femoral head flatteningor deformity. Sacroiliac joint is unremarkable.IMPRESSION:Negative plain film study of the left hip.NIRANJAN Jorgensen/Mike you for referring TON MARTINEZ to our office. Electronically Signed - RIKY NAVARRO MD 06/07/20 10:11 Name Value Range Interpretation Code Description Data Alena rce(s) Supporting Document(s) ID Date Data Source [id number] 06/06/2020 12:00:00 AM EDT [facility] Patient Name: TON MARTINEZ [id number] [facility] Date of : 1950[place] [address] Date of Exam: 06/06/2020PH#: Fax: [phone] EXAM: LUMBOSACRAL SPINE (4 VIEWS)CLINICAL INFORMATION: Pain.Five views.Comparison is 06/15/2008.Vertebral body heights and alignment are normal. There is moderatedegenerative disc disease at T12-L1, L1-2 and L2-3 that has mildlyprogressed. There is mild degenerative disc disease at L3-4 and L4-5 as aninterval change. The L5-S1 disc space is unremarkable and unchanged.There is facet osteoarthritis at L5-S1 that has progressed. The facets areotherwise unremarkable. The pedicles are intact. The sacroiliacarticulations are unremarkable.There is mild scoliosis convex right.IMPRESSION:Degenerative disc disease and facet osteoarthritis as described. Mildscoliosis.Riky Navarro, KAYLIJRobin/Mike you for referring TON MARTINEZ to our office. Electronically Signed - RIKY NAVARRO MD 06/07/20 10:11 Name Value Range Interpretation Code Description Data Alena rce(s) Supporting Document(s) ID Date Data Source [id number] 06/06/2020 04:41:00 PM EDT [facility] ([facility] Name Value Range Interpretation Code Description Data Alena rce(s) Supporting Document(s) Cholesterol in HDL [Mass/volume] in Serum or Plasma 41 mg/dL 35-55 [facility] ([facility] NORMAL RANGES Age WBC RBC HGB HCT [...] HCT IS 5% LESS SOURCE FOR DATA: Expan 1800 OPERATION MANUAL( AUTOMATED BLOOD COUNTS AND [...] ADOLESCENTS REPRESENTS INDIVIDUALA AGED 2-19 YEARS EXCLUSIVE. Chol 139 mg/dL 0-200 [facility] ([facility] NORMAL RANGES Age WBC RBC HGB HCT [...] HCT IS 5% LESS SOURCE FOR DATA: Expan 1800 OPERATION MANUAL( AUTOMATED BLOOD COUNTS AND [...] ADOLESCENTS REPRESENTS INDIVIDUALA AGED 2-19 YEARS EXCLUSIVE. Trig 120 mg/dL 35-200 [facility] ([facility] NORMAL RANGES Age WBC RBC HGB HCT [...] HCT IS 5% LESS SOURCE FOR DATA: Expan 1800 OPERATION MANUAL( AUTOMATED BLOOD COUNTS AND [...] ADOLESCENTS REPRESENTS INDIVIDUALA AGED 2-19 YEARS EXCLUSIVE. LDL_C 74 Calc 75-129 Below low normal [facility] ( [facility] NORMAL RANGES Age WBC RBC HGB HCT [...] HCT IS 5% LESS SOURCE FOR DATA: Expan 1800 OPERATION MANUAL( AUTOMATED BLOOD COUNTS AND [...] ADOLESCENTS REPRESENTS INDIVIDUALA AGED 2-19 YEARS EXCLUSIVE. Cho/HDL Ratio 3.4 Calc [facility] ([facility] NORMAL RANGES Age WBC RBC HGB HCT [...] HCT IS 5% LESS SOURCE FOR DATA: Expan 1800 OPERATION MANUAL( AUTOMATED BLOOD COUNTS AND [...] ADOLESCENTS REPRESENTS INDIVIDUALA AGED 2-19 YEARS EXCLUSIVE. ID Date Data Source [id number] 06/06/2020 04:41:00 PM EDT [facility] ([facility] Name Value Range Interpretation Code Description Data Alena rce(s) Supporting Document(s) Glu 98 mg/dL 70-110 [facility] ([facility] NORMAL RANGES Age WBC RBC HGB HCT [...] HCT IS 5% LESS SOURCE FOR DATA: ManyWho DYN 1800 OPERATION MANUAL( AUTOMATED BLOOD COUNTS AND [...] ADOLESCENTS REPRESENTS INDIVIDUALA AGED 2-19 YEARS EXCLUSIVE. Creat 0.9 mg/dL 0.7-1.2 [facility] ([facility] NORMAL RANGES Age WBC RBC HGB HCT [...] HCT IS 5% LESS SOURCE FOR DATA: Expan 1800 OPERATION MANUAL( AUTOMATED BLOOD COUNTS AND [...] ADOLESCENTS REPRESENTS INDIVIDUALA AGED 2-19 YEARS EXCLUSIVE. BUN 22 mg/dL 8-23 [facility] NORMAL RANGES Age WBC RBC HGB HCT [...] HCT IS 5% LESS SOURCE FOR DATA: ManyWho DYN 1800 OPERATION MANUAL( AUTOMATED BLOOD COUNTS AND [...] ADOLESCENTS REPRESENTS INDIVIDUALA AGED 2-19 YEARS EXCLUSIVE. BUN/Creatinine Ratio 24.0 CALC [facility] ([facility] NORMAL RANGES Age WBC RBC HGB HCT [...] HCT IS 5% LESS SOURCE FOR DATA: Expan 1800 OPERATION MANUAL( AUTOMATED BLOOD COUNTS AND [...] ADOLESCENTS REPRESENTS INDIVIDUALA AGED 2-19 YEARS EXCLUSIVE. CL 101.5 mmol/L 98.0-107.0 [facility] ([facility] NORMAL RANGES Age WBC RBC HGB HCT [...] HCT IS 5% LESS SOURCE FOR DATA: ManyWho DYN 1800 OPERATION MANUAL( AUTOMATED BLOOD COUNTS AND [...] ADOLESCENTS REPRESENTS INDIVIDUALA AGED 2-19 YEARS EXCLUSIVE. Na 138 mmol/L 136-145 [facility] NORMAL RANGES Age WBC RBC HGB HCT [...] HCT IS 5% LESS SOURCE FOR DATA: Expan 1800 OPERATION MANUAL( AUTOMATED BLOOD COUNTS AND [...] ADOLESCENTS REPRESENTS INDIVIDUALA AGED 2-19 YEARS EXCLUSIVE. K 4.5 mmol/L 3.5-5.1 [facility] ([facility] NORMAL RANGES Age WBC RBC HGB HCT [...] HCT IS 5% LESS SOURCE FOR DATA: Expan 1800 OPERATION MANUAL( AUTOMATED BLOOD COUNTS AND [...] ADOLESCENTS REPRESENTS INDIVIDUALA AGED 2-19 YEARS EXCLUSIVE. Co2 25.1 mmol/L 22.0-29.0 [facility] ([facility] NORMAL RANGES Age WBC RBC HGB HCT [...] HCT IS 5% LESS SOURCE FOR DATA: Expan 1800 OPERATION MANUAL( AUTOMATED BLOOD COUNTS AND [...] ADOLESCENTS REPRESENTS INDIVIDUALA AGED 2-19 YEARS EXCLUSIVE. TP 6.7 g/dL 6.6-8.7 [facility] ([facility] NORMAL RANGES Age WBC RBC HGB HCT [...] HCT IS 5% LESS SOURCE FOR DATA: Expan 1800 OPERATION MANUAL( AUTOMATED BLOOD COUNTS AND [...] ADOLESCENTS REPRESENTS INDIVIDUALA AGED 2-19 YEARS EXCLUSIVE. CA 9.7 mg/dL 8.6-10.2 [facility] ([facility] NORMAL RANGES Age WBC RBC HGB HCT [...] HCT IS 5% LESS SOURCE FOR DATA: Expan 1800 OPERATION MANUAL( AUTOMATED BLOOD COUNTS AND [...] ADOLESCENTS REPRESENTS INDIVIDUALA AGED 2-19 YEARS EXCLUSIVE. Globulin 2.4 CALC [facility] ([facility] NORMAL RANGES Age WBC RBC HGB HCT [...] HCT IS 5% LESS SOURCE FOR DATA: Expan 1800 OPERATION MANUAL( AUTOMATED BLOOD COUNTS AND [...] ADOLESCENTS REPRESENTS INDIVIDUALA AGED 2-19 YEARS EXCLUSIVE. Alb 4.3 g/dL 3.5-5.2 [facility] ([facility] NORMAL RANGES Age WBC RBC HGB HCT [...] HCT IS 5% LESS SOURCE FOR DATA: Expan 1800 OPERATION MANUAL( AUTOMATED BLOOD COUNTS AND [...] ADOLESCENTS REPRESENTS INDIVIDUALA AGED 2-19 YEARS EXCLUSIVE. A/G Ratio 1.8 CALC [facility] ([facility] NORMAL RANGES Age WBC RBC HGB HCT [...] HCT IS 5% LESS SOURCE FOR DATA: Expan 1800 OPERATION MANUAL( AUTOMATED BLOOD COUNTS AND [...] ADOLESCENTS REPRESENTS INDIVIDUALA AGED 2-19 YEARS EXCLUSIVE. Alp 82.7 U/L 40-129 [facility] ([facility] NORMAL RANGES Age WBC RBC HGB HCT [...] HCT IS 5% LESS SOURCE FOR DATA: Expan 1800 OPERATION MANUAL( AUTOMATED BLOOD COUNTS AND [...] ADOLESCENTS REPRESENTS INDIVIDUALA AGED 2-19 YEARS EXCLUSIVE. Alt (SGPT) 24 U/L 0-41 [facility] NORMAL RANGES Age WBC RBC HGB HCT [...] HCT IS 5% LESS SOURCE FOR DATA: MEHREEN DYN 1800 OPERATION MANUAL( AUTOMATED BLOOD COUNTS AND [...] ADOLESCENTS REPRESENTS INDIVIDUALA AGED 2-19 YEARS EXCLUSIVE. Ast (Sgot) 20 U/L 0-40 [facility] ([facility] NORMAL RANGES Age WBC RBC HGB HCT [...] HCT IS 5% LESS SOURCE FOR DATA: Expan 1800 OPERATION MANUAL( AUTOMATED BLOOD COUNTS AND [...] ADOLESCENTS REPRESENTS INDIVIDUALA AGED 2-19 YEARS EXCLUSIVE. Osmolality-Calculated 279.5 CALC [facility] ([facility] NORMAL RANGES Age WBC RBC HGB HCT [...] HCT IS 5% LESS SOURCE FOR DATA: Expan 1800 OPERATION MANUAL( AUTOMATED BLOOD COUNTS AND [...] ADOLESCENTS REPRESENTS INDIVIDUALA AGED 2-19 YEARS EXCLUSIVE. Anion Gap 16 mmol/L [facility] ([facility] NORMAL RANGES Age WBC RBC HGB HCT [...] HCT IS 5% LESS SOURCE FOR DATA: MEHREEN DYN 1800 OPERATION MANUAL( AUTOMATED BLOOD COUNTS AND [...] ADOLESCENTS REPRESENTS INDIVIDUALA AGED 2-19 YEARS EXCLUSIVE. Tbili 0.31 mg/dL 0.0-1.2 [facility] ([facility] NORMAL RANGES Age WBC RBC HGB HCT [...] HCT IS 5% LESS SOURCE FOR DATA: Expan 1800 OPERATION MANUAL( AUTOMATED BLOOD COUNTS AND [...] ADOLESCENTS REPRESENTS INDIVIDUALA AGED 2-19 YEARS EXCLUSIVE. eGFR 102 # [facility] ( [facility] NORMAL RANGES Age WBC RBC HGB HCT [...] HCT IS 5% LESS SOURCE FOR DATA: Expan 1800 OPERATION MANUAL( AUTOMATED BLOOD COUNTS AND [...] ADOLESCENTS REPRESENTS INDIVIDUALA AGED 2-19 YEARS EXCLUSIVE. eGFR Non-Afr. Citizen Of [place] 88 # [facility] ([facility] NORMAL RANGES Age WBC RBC HGB HCT [...] HCT IS 5% LESS SOURCE FOR DATA: ManyWho DYN 1800 OPERATION MANUAL( AUTOMATED BLOOD COUNTS AND [...] ADOLESCENTS REPRESENTS INDIVIDUALA AGED 2-19 YEARS EXCLUSIVE. ID Date Data Source [id number] 06/06/2020 04:41:00 PM EDT [facility] ([facility] Name Value Range Interpretation Code Description Data Alena rce(s) Supporting Document(s) RBC 4.80 10E6/uL 4.20-6.30 [facility] ([facility] NORMAL RANGES Age WBC RBC HGB HCT [...] HCT IS 5% LESS SOURCE FOR DATA: Expan 1800 OPERATION MANUAL( AUTOMATED BLOOD COUNTS AND [...] ADOLESCENTS REPRESENTS INDIVIDUALA AGED 2-19 YEARS EXCLUSIVE. HGB 16.3 g/dL 12.0-18.0 [facility] ([facility] NORMAL RANGES Age WBC RBC HGB HCT [...] HCT IS 5% LESS SOURCE FOR DATA: Expan 1800 OPERATION MANUAL( AUTOMATED BLOOD COUNTS AND [...] ADOLESCENTS REPRESENTS INDIVIDUALA AGED 2-19 YEARS EXCLUSIVE. WBC 8.5 10E3/uL 4.1-10.9 [facility] NORMAL RANGES Age WBC RBC HGB HCT [...] HCT IS 5% LESS SOURCE FOR DATA: ManyWho DYN 1800 OPERATION MANUAL( AUTOMATED BLOOD COUNTS AND [...] ADOLESCENTS REPRESENTS INDIVIDUALA AGED 2-19 YEARS EXCLUSIVE. MCH 34.0 pg 26.0-32.0 Above high normal [facility] ([facility] NORMAL RANGES Age WBC RBC HGB HCT [...] HCT IS 5% LESS SOURCE FOR DATA: Expan 1800 OPERATION MANUAL( AUTOMATED BLOOD COUNTS AND [...] ADOLESCENTS REPRESENTS INDIVIDUALA AGED 2-19 YEARS EXCLUSIVE. MCV 96.9 fL 80.0-97.0 [facility] NORMAL RANGES Age WBC RBC HGB HCT [...] HCT IS 5% LESS SOURCE FOR DATA: Expan 1800 OPERATION MANUAL( AUTOMATED BLOOD COUNTS AND [...] ADOLESCENTS REPRESENTS INDIVIDUALA AGED 2-19 YEARS EXCLUSIVE. HCT 46.5 % 37.0-51.0 [facility] ([facility] NORMAL RANGES Age WBC RBC HGB HCT [...] HCT IS 5% LESS SOURCE FOR DATA: ManyWho DYN 1800 OPERATION MANUAL( AUTOMATED BLOOD COUNTS AND [...] ADOLESCENTS REPRESENTS INDIVIDUALA AGED 2-19 YEARS EXCLUSIVE. RDW-CV 12.9 % 11.5-14.5 [facility] ([facility] NORMAL RANGES Age WBC RBC HGB HCT [...] HCT IS 5% LESS SOURCE FOR DATA: Expan 1800 OPERATION MANUAL( AUTOMATED BLOOD COUNTS AND [...] ADOLESCENTS REPRESENTS INDIVIDUALA AGED 2-19 YEARS EXCLUSIVE. MCHC 35.1 g/dL 31.0-36.0 [facility] ([facility] NORMAL RANGES Age WBC RBC HGB HCT [...] HCT IS 5% LESS SOURCE FOR DATA: Expan 1800 OPERATION MANUAL( AUTOMATED BLOOD COUNTS AND [...] ADOLESCENTS REPRESENTS INDIVIDUALA AGED 2-19 YEARS EXCLUSIVE. PLT 229 10E3/uL 140-440 [facility] ([facility] NORMAL RANGES Age WBC RBC HGB HCT [...] HCT IS 5% LESS SOURCE FOR DATA: Expan 1800 OPERATION MANUAL( AUTOMATED BLOOD COUNTS AND [...] ADOLESCENTS REPRESENTS INDIVIDUALA AGED 2-19 YEARS EXCLUSIVE. Neut% 68.5 % 37.0-92.0 [facility] ([facility] NORMAL RANGES Age WBC RBC HGB HCT [...] HCT IS 5% LESS SOURCE FOR DATA: Expan 1800 OPERATION MANUAL( AUTOMATED BLOOD COUNTS AND [...] ADOLESCENTS REPRESENTS INDIVIDUALA AGED 2-19 YEARS EXCLUSIVE. MXD% 12.3 % 0.1-24.0 [facility] ([facility] NORMAL RANGES Age WBC RBC HGB HCT [...] HCT IS 5% LESS SOURCE FOR DATA: MEHREEN DYN 1800 OPERATION MANUAL( AUTOMATED BLOOD COUNTS AND [...] ADOLESCENTS REPRESENTS INDIVIDUALA AGED 2-19 YEARS EXCLUSIVE. Lym% 19.2 % 10.0-58.5 [facility] ([facility] NORMAL RANGES Age WBC RBC HGB HCT [...] HCT IS 5% LESS SOURCE FOR DATA: Expan 1800 OPERATION MANUAL( AUTOMATED BLOOD COUNTS AND [...] ADOLESCENTS REPRESENTS INDIVIDUALA AGED 2-19 YEARS EXCLUSIVE. Lym# 1.6 10E3/uL 0.6-4.1 [facility] ([facility] NORMAL RANGES Age WBC RBC HGB HCT [...] HCT IS 5% LESS SOURCE FOR DATA: Expan 1800 OPERATION MANUAL( AUTOMATED BLOOD COUNTS AND [...] ADOLESCENTS REPRESENTS INDIVIDUALA AGED 2-19 YEARS EXCLUSIVE. MXD# 1.0 10E3/uL 0.0-1.8 [facility] ([facility] NORMAL RANGES Age WBC RBC HGB HCT [...] HCT IS 5% LESS SOURCE FOR DATA: Expan 1800 OPERATION MANUAL( AUTOMATED BLOOD COUNTS AND [...] ADOLESCENTS REPRESENTS INDIVIDUALA AGED 2-19 YEARS EXCLUSIVE. Neut# 5.9 % 2.0-7.8 [facility] ([facility] NORMAL RANGES Age WBC RBC HGB HCT [...] HCT IS 5% LESS SOURCE FOR DATA: Expan 1800 OPERATION MANUAL( AUTOMATED BLOOD COUNTS AND [...] ADOLESCENTS REPRESENTS INDIVIDUALA AGED 2-19 YEARS EXCLUSIVE. MPV 11.5 fL 9.0-13.0 [facility] NORMAL RANGES Age WBC RBC HGB HCT [...] HCT IS 5% LESS SOURCE FOR DATA: Expan 1800 OPERATION MANUAL( AUTOMATED BLOOD COUNTS AND [...] ADOLESCENTS REPRESENTS INDIVIDUALA AGED 2-19 YEARS EXCLUSIVE. ID Date Data Source [id number] 06/06/2020 04:39:00 PM EDT [facility] ([facility] Name Value Range Interpretation Code Description Data Alena rce(s) Supporting Document(s) Thyrotropin [Units/volume] in Serum or Plasma 1.454 ulU/mL 0.60-4.8 [facility] ([facility] ID Date Data Source [id number] 06/06/2020 04:38:00 PM EDT [facility] ([facility] Name Value Range Interpretation Code Description Data Alena rce(s) Supporting Document(s) Prostate specific Ag [Mass/volume] in Serum or Plasma 0.32 ng/mL 0.0- 4.0 [facility] ([facility] Procedure Social History Code Duration Value Status Description Data Source(s ) Alcohol intake 09/13/2020 12:00:00 AM EST Yes completed [facility] Cigarettes smoked current (pack per day) - Reported 09/13/20 20 12:00:00 AM EST UNK completed [facility] Smoking 09/13/2020 12:00:00 AM EST Current every day smoker co mpleted Current every day smoker [facility] Vital Signs ID Date Data Source UNK Name Value Range Interpretation Code Description Data Source(s) Diastolic blood pressure 97 mm[Hg] 97 mm[Hg] [facility] home monitor Systolic blood pressure 167 mm[Hg] 167 mm[Hg] [facility] home monitor Body mass index (BMI) [Ratio] 39.28 kg/m2 39.28 kg/m2 [facility] Body weight 120.657 kg 120.657 kg [facility] Body height 175.3 cm 175.3 cm [facility] Respiratory rate 16 /min 16 /min [facility] Body surface area Derived from formula 2.35 m2 2.35 m2 [facility] ([facility], ) Body weight 119.410 kg 119.410 kg [facility] ([facility], ) [place] body weight 166 [lb_av] 166 [lb_av] [facility] ([facility], ) Body mass index (BMI) [Ratio] 37.8 kg/m2 37.8 k g/m2 [facility] ([facility], ) Body weight 263.25 [lb_av] 263.25 [lb_av] [facility] ([facility], ) Body height 70 [in_i] 70 [in_i] [facility] ([facility]) 5'10" Diastolic blood pressure 90 mm[Hg] 90 mm[Hg] [facility] ([facility]) Systolic blood pressure 137 mm[Hg] 137 mm[Hg] [facility] Body mass index (BMI) [Ratio] 39.13 kg/m2 39.13 kg/m2 [facility] Body weight 120.203 kg 120.203 kg [facility] Body height 175.3 cm 175.3 cm [facility] Respiratory rate 16 /min 16 /min [facility] Heart rate 50 /min 50 /min [facility] Diastolic blood pressure 90 mm[Hg] 90 mm[Hg] [facility] Systolic blood pressure 150 mm[Hg] 150 mm[Hg] [facility] Oxygen saturation in Arterial blood by Pulse oximetry 96 % 96 % [facility] ([facility] Body mass index (BMI) [Ratio] 37.7 kg/m2 37.7 k g/m2 [facility] ([facility] [place] body weight 166 [lb_av] 166 [lb_av] [facility] ([facility] Body weight 263.00 [lb_av] 263.00 [lb_av] [facility] ([facility] Body height 70 [in_i] 70 [in_i] [facility] ([facility] 5'10" Respiratory rate 16 /min 16 /min [facility] ( [facility] Heart rate 83 /min 83 /min [facility] ([facility] Body temperature 98.1 [degF] 98.1 [degF] [facility] ([facility] Diastolic blood pressure 80 mm[Hg] 80 mm[Hg] [facility] ([facility] Systolic blood pressure 136 mm[Hg] 136 mm[Hg] M [facility] ([facility] Body mass index (BMI) [Ratio] 36.6 kg/m2 36.6 k g/m2 [facility] ([facility]) Body weight 255.00 [lb_av] 255.00 [lb_av] [facility] ([facility]) Body height 70 [in_i] 70 [in_i] [facility] ([facility]) 5'10" Body temperature 97.0 [degF] 97.0 [degF] [facility] ([facility]) Oxygen saturation in Arterial blood by Pulse oximetry 96 % 96 % [facility] ([facility] Body mass index (BMI) [Ratio] 37.6 kg/m2 37.6 k g/m2 [facility] ([facility] [place] body weight 166 [lb_av] 166 [lb_av] [facility] ([facility] Body weight 262.00 [lb_av] 262.00 [lb_av] [facility] ([facility] Body height 70 [in_i] 70 [in_i] [facility] ([facility] 5'10" Respiratory rate 16 /min 16 /min [facility] ( [facility] Heart rate 65 /min 65 /min [facility] ([facility] Body temperature 97.5 [degF] 97.5 [degF] [facility] ([facility] Diastolic blood pressure 72 mm[Hg] 72 mm[Hg] [facility] ([facility] Systolic blood pressure 110 mm[Hg] 110 mm[Hg] M [facility] ([facility] Patient Treatment Plan of Care Planned Activity Planned Date Details Description Data Source (s) ezetimibe 10 MG Oral Tablet 08/31/2020 12:00:00 AM EST [facility] atorvastatin 80 MG Oral Tablet 08/31/2020 12:00:00 AM EST [facility] Metoprolol Tartrate 25 MG Oral Tablet 04/20/2020 12:00:00 AM EDT [facility]
[2020-10-20] MEDS ORDERED: MIDAZOLAM INJ 2MG/2ML VIAL (J2250 PER 1MG) As Ordered ONE (07:16)
[2020-10-20] MEDS ORDERED: fentaNYL 100 MCG/2 ML INJECTION (J3010) As Ordered ONE (07:16)
[2020-10-20] MEDS ORDERED: ONDANSETRON 4MG/2ML VIAL IV PRN (09:45)
[2020-10-20 10:15] VITALS: BP 121/73
--- NOTE | 2020-10-21 08:20 | RO ---
OPERATIVE NOTE DATE OF OPERATION: 10/20/2020 PREOPERATIVE DIAGNOSIS: 1. Visually significant nuclear sclerotic cataract, left eye. POSTOPERATIVE DIAGNOSIS: 1. Visually significant nuclear sclerotic cataract, left eye. PROCEDURE: 1. Cataract extraction with use of phacoemulsification, and placement of intraocular lens, [id number], D 21.0, left eye. SURGEON: Benito Murcia DO ANESTHESIA: Local (Omidria with MAC) COMPLICATIONS: None POSTOPERATIVE CONDITION: Stable INDICATIONS FOR SURGERY: 1. Blurred vision affecting patient's activities of daily living. DESCRIPTION OF PROCEDURE: The patient was seen in the preoperative area and properly identified. The correct operative eye was identified and marked. The patient received topical anesthetic, antibiotics, and topical dilating drops. The patient was then transferred to the operating room. The correct side was re-identified and a time-out was performed. The eye was prepped and draped in a sterile fashion. The eyelids were isolated with Tegaderm tape and the lids were held open with an adjustable speculum. A 1.0mm paracentesis incision was made. Omidria was then injected into the anterior chamber. Viscoelastic was then injected into the anterior chamber through the paracentesis. Using a 2.4mm sharp-tipped keratome, the anterior chamber was entered via a temporal clear cornea incision. A continuous curvilinear capsulorrhexis was created with Utrata forceps. Hydrodissection was performed with BSS on a blunt cannula until the nucleus was able to rotate freely. The crystalline lens was phacoemulsified and aspirated. Irrigation/aspiration was used to remove the cortical material Cohesive viscoelastic was placed into the capsular bag to deepen it. The implant was placed into the capsular bag and allowed to unfold. Placement was confirmed by visualizing the anterior capsulorrhexis. Irrigation/aspiration was used to remove the viscoelastic. The clear corneal incision was hydrated with BSS on a blunt cannula. The lens was well positioned. Intracameral antibiotic was injected into the anterior chamber. The incisions were then tested for leaks and found to be negative. The eye was then palpated for appropriate pressure and adjusted accordingly with BSS. The eyelid speculum was then carefully removed. A shield was placed over the eye. The patient tolerated the procedure well and was discharge to the recovery unit in a stable condition. [facility]
== END 2020-10-20 10:20 | disposition home or self-care (01) ==
LOC: M SDC 06:53
PROVIDERS: ATTEND Ophthalmology
DX: H25.12 Age-related nuclear cataract, left eye (principal); I10 Essential (primary) hypertension; I73.9 Peripheral vascular disease, unspecified; Z79.899 Other long term (current) drug therapy; F17.218 Nicotine dependence, cigarettes, with other nicotine-induced disorders
CPT/HCPCS: 66984; J1097; J2250; J3010; V2632

== ENCOUNTER → 2020-11-05 | Outpatient (CLI) | payer MEDICARE ==
[~2020-11-05] MED LIST changes: -BSS IRR 500ML/OMIDRIA 4ML IRR BAG (OR ONLY) As Ordered ONE; -CEFUROXIME 1MG/0.1ML INTRACAMERAL INJ As Ordered ONE; -DUOVISC (0.50ML VISCOAT/0.55ML PROVISC) OPHTH KIT As Ordered ONE; -POVIDONE-IODINE 5% OPHTH PREP SOL 30ML As Ordered ONE
== END ==
LOC: M LABSMTC 08:11
PROVIDERS: ATTEND Anesthesiology
DX: Z01.812 Encounter for preprocedural laboratory examination (principal); Z20.822 Contact with and (suspected) exposure to COVID-19

== ENCOUNTER 2020-11-10 09:37 | Day surgery (SDC) | payer MEDICARE ==
[~2020-11-10] VITALS: Ht 177.8 cm; Wt 117.5 kg
[~2020-11-10 09:37] MED LIST changes: +CEFUROXIME 1MG/0.1ML INTRACAMERAL INJ As Ordered ONE; +DUOVISC (0.50ML VISCOAT/0.55ML PROVISC) OPHTH KIT As Ordered ONE; +MIDAZOLAM INJ 2MG/2ML VIAL (J2250 PER 1MG) As Ordered ONE; +OFLOXACIN 0.3 % (OCUFLOX) OPTH SOL 5ML OD ONE; +PHENYLEPHRINE 2.5% OPHTH SOL 2ML OD ONE; +PROPARACAINE 0.5% OPHTH SOL 15ML OD ONE; +TROPICAMIDE 1% OPHTH SOLN 2ML OD ONE; +fentaNYL 100 MCG/2 ML INJECTION (J3010) As Ordered ONE
[2020-11-10] MEDS ORDERED: DUOVISC (0.50ML VISCOAT/0.55ML PROVISC) OPHTH KIT As Ordered ONE (12:05)
[2020-11-10 12:35] VITALS: BP 139/75
--- NOTE | 2020-11-11 10:36 | RO ---
OPERATIVE NOTE DATE OF OPERATION: 11/10/2020 PREOPERATIVE DIAGNOSIS: 1. Visually significant nuclear sclerotic cataract, right eye. POSTOPERATIVE DIAGNOSIS: 1. Visually significant nuclear sclerotic cataract, right eye. PROCEDURE: 1. Cataract extraction with use of phacoemulsification, and placement of intraocular lens, [id number], 21.5 D, right eye. SURGEON: Benito Murcia DO ANESTHESIA: Local (Omidria with MAC) COMPLICATIONS: None POSTOPERATIVE CONDITION: Stable INDICATIONS FOR SURGERY: 1. Blurred vision affecting patient's activities of daily living. DESCRIPTION OF PROCEDURE: The patient was seen in the preoperative area and properly identified. The correct operative eye was identified and marked. The patient received topical anesthetic, antibiotics, and topical dilating drops. The patient was then transferred to the operating room. The correct side was re-identified and a time-out was performed. The eye was prepped and draped in a sterile fashion. The eyelids were isolated with Tegaderm tape and the lids were held open with an adjustable speculum. A 1.0mm paracentesis incision was made. Omidria was then injected into the anterior chamber. Viscoelastic was then injected into the anterior chamber through the paracentesis. Using a 2.4mm sharp-tipped keratome, the anterior chamber was entered via a temporal clear cornea incision. A continuous curvilinear capsulorrhexis was created with Utrata forceps. Hydrodissection was performed with BSS on a blunt cannula until the nucleus was able to rotate freely. The crystalline lens was phacoemulsified and aspirated. Irrigation/aspiration was used to remove the cortical material Cohesive viscoelastic was placed into the capsular bag to deepen it. The implant was placed into the capsular bag and allowed to unfold. Placement was confirmed by visualizing the anterior capsulorrhexis. Irrigation/aspiration was used to remove the viscoelastic. The clear corneal incision was hydrated with BSS on a blunt cannula. The lens was well positioned. Intracameral antibiotic was injected into the anterior chamber. The incisions were then tested for leaks and found to be negative. The eye was then palpated for appropriate pressure and adjusted accordingly with BSS. The eyelid speculum was then carefully removed. A shield was placed over the eye. The patient tolerated the procedure well and was discharge to the recovery unit in a stable condition.
== END 2020-11-10 13:32 | disposition home or self-care (01) ==
LOC: M SDC 09:37
PROVIDERS: ATTEND Ophthalmology
DX: H25.11 Age-related nuclear cataract, right eye (principal); I10 Essential (primary) hypertension; E78.5 Hyperlipidemia, unspecified; F17.210 Nicotine dependence, cigarettes, uncomplicated; M12.9 Arthropathy, unspecified; R06.83 Snoring; Z79.899 Other long term (current) drug therapy; Z88.5 Allergy status to narcotic agent; Z96.1 Presence of intraocular lens; Z98.42 Cataract extraction status, left eye
CPT/HCPCS: 66984; J2250; J3010; V2632

== ENCOUNTER → 2021-01-05 | Outpatient (CLI) | payer MEDICARE ==
[~2021-01-05] MED LIST changes: -CEFUROXIME 1MG/0.1ML INTRACAMERAL INJ As Ordered ONE; -DUOVISC (0.50ML VISCOAT/0.55ML PROVISC) OPHTH KIT As Ordered ONE; -MIDAZOLAM INJ 2MG/2ML VIAL (J2250 PER 1MG) As Ordered ONE; -OFLOXACIN 0.3 % (OCUFLOX) OPTH SOL 5ML OD ONE; -PHENYLEPHRINE 2.5% OPHTH SOL 2ML OD ONE; -PROPARACAINE 0.5% OPHTH SOL 15ML OD ONE; -TROPICAMIDE 1% OPHTH SOLN 2ML OD ONE; -fentaNYL 100 MCG/2 ML INJECTION (J3010) As Ordered ONE
--- NOTE | 2021-01-09 13:32 | SLEEPCENT ---
NOCTURNAL POLYSOMNOGRAPHY DATE: 01/05/2021 ORDERED BY: MIREYA Raymond Nocturnal polysomnography was performed for evaluation of sleep physiology in this patient with a history of excessive somnolence. 6 hours and 1 minute of data were reviewed. There were 186 minutes of sleep identified. Sleep latency was prolonged at 49 minutes. REM latency was normal at 97 minutes. Sleep architecture was fair with two REM cycles. Overall sleep efficiency was 52.4%. The electrocardiogram showed a sinus rhythm with an average heart rate of 66 beats per minute. EEG showed normal waveforms for wake and sleep. There were 119 respiratory events identified of 10 seconds in duration or greater for an apnea-hypopnea index of 38.4. The events were primarily obstructive, not exclusive to sleep stage, and more frequent in the supine posture. Arousals from respiratory events occurred 11.9 times per hour, and oxygen desaturations were seen into the low 70s. There was some activity noted in the limb leads, but arousals were few. Snoring was noted over the course of the study. IMPRESSION: Severe obstructive sleep apnea syndrome (G47.33), apnea-hypopnea index 38.4. RECOMMENDATION: The patient should be encouraged to return to [facility] for pressure therapy. In the interim, alcohol and sedative avoidance should be practiced and caution exercised during the operation of motor vehicles.
== END ==
LOC: M SLEEP 20:00
PROVIDERS: ATTEND Nurse Practitioner Family
DX: G47.33 Obstructive sleep apnea (adult) (pediatric) (principal)

== ENCOUNTER → 2021-01-21 | Outpatient (CLI) | payer MEDICARE ==
--- NOTE | 2021-01-24 17:06 | SLEEPCENT ---
DATE: 01/21/2021 ORDERED BY: Nisreen Aguilera Nocturnal polysomnography was performed for the titration of pressure therapy in this patient with obstructive sleep apnea syndrome, apnea-hypopnea index 38.4. For testing, ResMed F20 AirTouch full-face mask of medium size was used. There was 5 cm of water pressure applied to the circuit, and the lights were extinguished. There was 7 hours and 53 minutes of data reviewed. There was 333 minutes of sleep identified. Sleep latency was short at 4 minutes. REM latency was short at 52 minutes. Sleep architecture was reasonably good with four REM cycles. Overall sleep efficiency was 72.4%. The electrocardiogram showed a sinus rhythm with an average heart rate of 60 beats per minute. EEG showed normal waveforms for wake and sleep. Persistent respiratory events prompted increases in CPAP, and despite optimal mask fit and a minimal air leak, the patient required a change to a bilevel device. Best sleep was seen on a bilevel pressure of inspiratory 16 over expiratory 12. Remaining measures of sleep physiology were normal. IMPRESSION: Obstructive sleep apnea syndrome (G47.33). RECOMMENDATION: Nightly use of pressure therapy using a bilevel device, inspiratory 16 over expiratory of 12.
== END ==
LOC: M SLEEP 20:00
PROVIDERS: ATTEND Nurse Practitioner Family
DX: G47.33 Obstructive sleep apnea (adult) (pediatric) (principal)

== ENCOUNTER → 2021-07-27 | Outpatient (CLI) | payer MEDICARE ==
--- NOTE | 2021-07-27 10:53 | REP ---
INDICATION: SHORTNESS OF BREATH. COMPARISON: 11/18/2017 TECHNIQUE: PA and lateral FINDINGS: The superior mediastinal structures are midline. The cardiac silhouette is unremarkable in size, shape, and position. The diaphragmatic surfaces of the lungs are regular, and the costophrenic angles are clear. The pulmonary alvarez are clear. The imaged osseous structures are intact. IMPRESSION: There is no acute cardiopulmonary disease. <Electronically signed by Marino Armstrong > 07/27/21 [id number]
== END ==
LOC: M WUC 08:56
PROVIDERS: ATTEND Physician Assistant
DX: R06.02 Shortness of breath (principal)

== ENCOUNTER → 2022-10-15 | Outpatient (CLI) | payer MEDICARE ==
[2022-10-15 16:37] LABS: HEMATOCRIT 47.3 % (42.0-52.0); HEMOGLOBIN 15.3 g/dl (13.5-17.5); MEAN CORPUSCULAR HEMOGLOBIN 31.7 pg (27.0-33.0); MEAN CORPUSCULAR HGB CONC 32.3 g/dl (32.0-36.5); MEAN CORPUSCULAR VOLUME 97.9 fl (80.0-96.0); PLATELET COUNT, AUTOMATED 209 10^3/uL (150-450); RED BLOOD COUNT 4.83 10^6/uL (4.30-6.10); WHITE BLOOD COUNT 8.6 10^3/uL (4.0-10.0)
[2022-10-15 17:07] LABS: BLOOD UREA NITROGEN 19 MG/DL (9-23); CARBON DIOXIDE LEVEL 31 MMOL/L (20-31); CHLORIDE LEVEL 101 MMOL/L (98-107); CREATININE FOR GFR 1.12 MG/DL (0.70-1.30); GLOMERULAR FILTRATION RATE > 60.0 (>49); GLUCOSE, FASTING 106 MG/DL (74-106); POTASSIUM SERUM 4.5 MMOL/L (3.5-5.1); SODIUM LEVEL 137 MMOL/L (136-145)
== END ==
LOC: M WUC 14:19
PROVIDERS: ATTEND Nurse Practitioner Family
DX: R06.02 Shortness of breath (principal)

== ENCOUNTER → 2024-04-20 | Outpatient (REF) | payer MEDICARE | LOC: M LAB REF 17:56 | PROVIDERS: ATTEND Podiatrist Foot & Ankle Surgery | DX: B07.9 Viral wart, unspecified (principal) ==

== ENCOUNTER → 2025-04-12 | Outpatient (CLI) | payer MEDICARE ==
[~2025-04-12] MED LIST changes: +ATOR-398 PO; -LIPI80TA PO
[2025-04-12 16:30] LABS: BACTERIA, URINE AUTO NEGATIVE (NEGATIVE); BILIRUBIN, URINE AUTO NEGATIVE (NEGATIVE); BLOOD, URINE BLOOD NEGATIVE (NEGATIVE); CALCIUM OXALATE CRYSTALS SMALL; GLUCOSE, URINE (UA) AUTO NEGATIVE (NEGATIVE); KETONE, URINE AUTO TRACE mg/dL (NEGATIVE); LEUKOCYTE ESTERASE, URINE AUTO NEGATIVE (NEGATIVE); MUCUS, URINE SMALL (NEGATIVE); NITRITE, URINE AUTO NEGATIVE (NEGATIVE); PROTEIN, URINE AUTO NEGATIVE (NEGATIVE); RBC, URINE AUTO 0 /HPF (0-3); SPECIFIC GRAVITY URINE AUTO 1.023 (1.002-1.035); SQUAMOUS EPITHELIAL CELL UR AU 0 /HPF (0-6); UROBILINOGEN, URINE AUTO 0.2 mg/dL (0.0-2.0); WBC, URINE AUTO 1 /HPF (0-3)
[2025-04-12 16:37] LABS: ESTIMATED AVERAGE GLUCOSE 131.0 MG/DL (60-110)
[2025-04-12 16:54] LABS: PROSTATIC SPECIFIC AG MONITOR 0.36 NG/ML (< 4.00)
[2025-04-13 07:20] LABS: APPEARANCE, URINE HAZY (CLEAR)
== END ==
LOC: M WUC 11:40
PROVIDERS: ATTEND Physician Assistant
DX: E78.5 Hyperlipidemia, unspecified (principal); Z12.5 Encounter for screening for malignant neoplasm of prostate; R35.1 Nocturia; R73.01 Impaired fasting glucose

== ENCOUNTER → 2025-07-14 | Outpatient (CLI) | payer MEDICARE ==
[~2025-07-14] MED LIST changes: -EZET10TA21 PO; +EZET10TA57 PO
[2025-07-14 16:49] LABS: ESTIMATED AVERAGE GLUCOSE 140.0 MG/DL (60-110)
== END ==
LOC: M WUC 12:18
PROVIDERS: ATTEND Physician Assistant
DX: R73.03 Prediabetes (principal)

== ENCOUNTER → 2025-07-30 | Outpatient (CLI) | payer MEDICARE | LOC: M RAD 13:20 | PROVIDERS: ATTEND Physician Assistant | DX: Z12.2 Encounter for screening for malignant neoplasm of respiratory organs (principal); F17.211 Nicotine dependence, cigarettes, in remission; J43.9 Emphysema, unspecified; I25.10 Atherosclerotic heart disease of native coronary artery without angina pectoris ==